=== PATIENT | female | born 2000 | race African-American/Black ===

== ENCOUNTER 2021-03-28 14:45 | Emergency (ER) | payer MEDICAID, SELFPAY ==
[2021-03-28] MEDS ORDERED: Acetaminophen 500 MG TAB ONE (15:30)
[2021-03-28 15:32] LABS: Bilirubin Negative (Negative); Blood, Urine 3+ (Negative); Clarity Turbid (Clear); Glucose, Urine (Dipstick) Normal (Negative); Ketone, Urine Trace mg/dL (Negative); Leukocyte 500 Leu/uL (Negative); Nitrite Negative (Negative); Protein, Urine (Dipstick) 70 mg/dL (Neg-Trace); Specific Gravity, Urine 1.039 (1.002-1.036); Urobilinogen 3 mg/dL (Less than 2)
[2021-03-28 15:34] LABS: Pregnancy Test - Urine (BHCG) Negative (Negative); Pregu Control Background? CLEAR/WHITE (CLR/WHITE); Pregu Control Bar Appear? YES (CONTROL BAR); Specific Gravity 1.039 (1.002-1.036)
[2021-03-28 15:45] LABS: WBC/HPF 21-50 HPF (0-3)
[2021-03-28 15:46] LABS: Bacteria/HPF 1+ HPF (None Seen)
[2021-03-28] MEDS ORDERED: Ketorolac Tromethamine 30 MG/ML VIAL ONE (16:11)
[2021-03-28 17:00] LABS: #Basophils 0.1 thou/uL (0.0-0.2); #Eosinphils 0.2 thou/uL (0.0-0.7); #Lymphocytes 2.2 thou/uL (1.20-3.40); #Monocytes 0.6 thou/uL (0.11-0.59); #Neutrophils 5.9 thou/uL (1.40-6.50); %Basophils 0.7 % (0.0-1.0); %Eosinophils 2.4 % (0.0-10.0); %Lymphocytes 24.5 % (28.0-48.0); %Monocytes 6.6 % (0.0-4.0); %Neutrophils 65.8 % (31.0-61.0); Hemoglobin 13.4 g/dL (12.0-16.0); Mean Corpuscular HGB CONC 32.1 g/dL (32.0-36.0); Mean Corpuscular Hemoglobin 29.4 pg (25.0-35.0); Mean Corpuscular Volume 91.6 fL (78.0-98.0); Mean Platelet Volume 9.8 fL (7.4-10.4); Platelet Count 184 thou/uL (130-400); RBC Distribution Width 11.9 % (11.5-14.5); Red Blood Cell (RBC) Count 4.55 mill/uL (4.00-5.20); White Blood Cell (WBC) Count 8.9 thou/uL (4.8-10.8)
[2021-03-28 17:24] LABS: ALT (SGPT) 14 U/L (8-55); AST (SGOT) 23 U/L (5-34); Albumin 4.6 g/dL (3.5-5.0); Alkaline Phosphatase 98 U/L (40-100); Anion Gap 16 mmol/L (10-20); BUN (Urea Nitrogen) 5 mg/dL (7.0-18.7); Bilirubin, Total 0.5 mg/dL (0.2-1.2); Calc. Creatinine Clearance 0 mL/min (70-130); Calcium 9.6 mg/dL (7.8-10.44); Carbon Dioxide 20 mmol/L (22-29); Chloride 109 mmol/L (98-107); Globulin 3.7 g/dL (2.4-3.5); Glucose 68 mg/dL (70-105); Lipase 11 U/L (8-78); Potassium 3.9 mmol/L (3.5-5.1); Protein, Total 8.3 g/dL (6.0-8.3); Sodium 141 mmol/L (136-145)
[2021-03-28] MEDS ORDERED: Ondansetron ODT 4 MG TAB ONE (17:45)
== END 2021-03-28 17:57 | disposition home or self-care (01) ==
LOC: ERS 14:45
DX: M54.50 Low back pain, unspecified (principal)
CPT/HCPCS: 74176; 80053; 81003; 81015; 81025; 83690; 85025; 96374; J1885; Q0162

== ENCOUNTER 2022-04-09 08:51 | Emergency (ER) | payer SELFPAY ==
[2022-04-09 09:25] LABS: #Basophils 0.1 thou/uL (0.0-0.2); #Eosinphils 0.1 thou/uL (0.0-0.7); #Lymphocytes 2.7 thou/uL (1.20-3.40); #Monocytes 0.6 thou/uL (0.11-0.59); %Basophils 0.7 % (0.0-1.0); %Eosinophils 1.4 % (0.0-10.0); %Lymphocytes 31.8 % (21.0-51.0); %Monocytes 7.5 % (0.0-10.0); %Neutrophils 58.7 % (42.0-75.0); Hemoglobin 12.8 g/dL (12.0-16.0); Mean Corpuscular HGB CONC 31.5 g/dL (32.0-36.0); Mean Corpuscular Hemoglobin 29.4 pg (27.0-31.0); Mean Corpuscular Volume 93.3 fl (78.0-98.0); Mean Platelet Volume 9.2 fL (7.4-10.4); Platelet Count 186 10x3/uL (130-400); RBC Distribution Width 11.7 % (11.5-14.5); Red Blood Cell (RBC) Count 4.35 mill/uL (4.20-5.40); White Blood Cell (WBC) Count 8.5 10x3/uL (4.8-10.8)
[2022-04-09 09:50] LABS: BHCG - Serum Negative (NEGATIVE); Pregs Control Background? CLEAR/WHITE (CLR/WHITE); Pregs Control Bar Appear? YES (CONTROL BAR)
[2022-04-09 10:08] LABS: ALT (SGPT) 13 U/L (8-55); AST (SGOT) 17 U/L (5-34); Albumin 4.6 g/dL (3.5-5.0); Alkaline Phosphatase 98 U/L (40-110); Anion Gap 14 mmol/L (10-20); BUN (Urea Nitrogen) 6 mg/dL (7.0-18.7); Bilirubin, Total 0.5 mg/dL (0.2-1.2); CK (CPK) 214 U/L (29-168); Calc. Creatinine Clearance 0 mL/min (70-130); Calcium 9.4 mg/dL (7.8-10.44); Carbon Dioxide 22 mmol/L (22-29); Chloride 109 mmol/L (98-107); Estimated GFR 127; Glucose 86 mg/dL (70-105); Lipase 11 U/L (8-78); Potassium 3.7 mmol/L (3.5-5.1); Protein, Total 7.6 g/dL (6.0-8.3); Sodium 141 mmol/L (136-145)
[2022-04-09] MEDS ORDERED: Ketorolac Tromethamine 30 MG/ML VIAL ONE (10:34)
[2022-04-09] MEDS ORDERED: Metoclopramide HCl 10 MG/2 ML VIAL ONE (10:34)
[2022-04-09] MEDS ORDERED: diphenhydrAMINE 50 MG/ML VIAL ONE (10:34)
[2022-04-09 11:10] LABS: Bilirubin Negative (Negative); Blood, Urine 2+ (Negative); Clarity Turbid (Clear); Glucose, Urine (Dipstick) Normal (Negative); Ketone, Urine Negative (Negative); Leukocyte 500 Leu/uL (Negative); Nitrite Negative (Negative); Protein, Urine (Dipstick) 10 mg/dL (Neg-Trace); Specific Gravity, Urine 1.014 (1.002-1.036); Urobilinogen Normal mg/dL (Less than 2)
[2022-04-09 11:21] LABS: Bacteria/HPF 2+ HPF (None Seen)
[2022-04-09] MEDS ORDERED: Midazolam HCl 2 mg/2 ml Vial ONE (11:23)
== END 2022-04-09 12:21 | disposition home or self-care (01) ==
LOC: ERS 08:51
DX: N39.0 Urinary tract infection, site not specified (principal); J02.9 Acute pharyngitis, unspecified; R07.9 Chest pain, unspecified
CPT/HCPCS: 36415; 71045; 80053; 81003; 81015; 82550; 83690; 83880; 84484; 84703; 85025; 85379; 87077; 87086; 87186; 93005; 96365; 96375; J1200; J1885; J2250; J2765

== ENCOUNTER 2022-04-12 19:29 | Emergency (ER) | payer SELFPAY ==
[~2022-04-12 19:29] MED LIST: Iopamidol-370 76% 500 ML 1 ML ONE
[2022-04-12] MEDS ORDERED: Ondansetron PF 4 MG/2 ML Vial ONE (20:11)
[2022-04-12] MEDS ORDERED: Ketorolac Tromethamine 30 MG/ML VIAL ONE (20:11)
[2022-04-12] MEDS ORDERED: Morphine 4 MG/ML VIAL ONE (20:11)
[2022-04-12 20:27] LABS: #Basophils 0.1 thou/uL (0.0-0.2); #Eosinphils 0.1 thou/uL (0.0-0.7); #Lymphocytes 2.1 thou/uL (1.20-3.40); #Monocytes 0.5 thou/uL (0.11-0.59); #Neutrophils 6.4 thou/uL (1.40-6.50); %Basophils 0.6 % (0.0-1.0); %Eosinophils 1.2 % (0.0-10.0); %Monocytes 5.8 % (0.0-10.0); %Neutrophils 69.5 % (42.0-75.0); Hemoglobin 12.7 g/dL (12.0-16.0); Mean Corpuscular HGB CONC 32.7 g/dL (32.0-36.0); Mean Corpuscular Hemoglobin 30.1 pg (27.0-31.0); Mean Corpuscular Volume 91.9 fl (78.0-98.0); Mean Platelet Volume 9.7 fL (7.4-10.4); Platelet Count 186 10x3/uL (130-400); RBC Distribution Width 11.6 % (11.5-14.5); Red Blood Cell (RBC) Count 4.21 mill/uL (4.20-5.40); White Blood Cell (WBC) Count 9.3 10x3/uL (4.8-10.8)
[2022-04-12 20:38] LABS: BHCG - Serum Negative (NEGATIVE); Pregs Control Background? CLEAR/WHITE (CLR/WHITE); Pregs Control Bar Appear? YES (CONTROL BAR)
[2022-04-12] MEDS ORDERED: cefTRIAXone\\ROCEPHIN 2 GM VIAL ONE (20:44)
[2022-04-12 20:49] LABS: ALT (SGPT) 13 U/L (8-55); AST (SGOT) 17 U/L (5-34); Albumin 4.5 g/dL (3.5-5.0); Alkaline Phosphatase 102 U/L (40-110); Anion Gap 13 mmol/L (10-20); BUN (Urea Nitrogen) 8 mg/dL (7.0-18.7); Bilirubin, Total 0.4 mg/dL (0.2-1.2); Calc. Creatinine Clearance 0 mL/min (70-130); Calcium 9.4 mg/dL (7.8-10.44); Carbon Dioxide 22 mmol/L (22-29); Chloride 108 mmol/L (98-107); Estimated GFR 120; Globulin 3.3 g/dL (2.4-3.5); Glucose 87 mg/dL (70-105); Potassium 4.3 mmol/L (3.5-5.1); Protein, Total 7.8 g/dL (6.0-8.3); Sodium 139 mmol/L (136-145)
== END 2022-04-12 22:19 | disposition home or self-care (01) ==
LOC: ERS 19:29
DX: N10 Acute pyelonephritis (principal); I10 Essential (primary) hypertension
CPT/HCPCS: 74177; 80053; 84703; 85025; 96361; 96365; 96375; J0696; J1885; J2270; J2405; Q9967

== ENCOUNTER 2022-09-19 10:51 | Emergency (ER) | payer SELFPAY ==
[2022-09-19] MEDS ORDERED: Acetaminophen 325 MG TAB ONE (11:50)
[2022-09-19 11:56] LABS: #Eosinphils 0.1 thou/uL (0.0-0.7); #Monocytes 0.6 thou/uL (0.11-0.59); #Neutrophils 7.9 thou/uL (1.40-6.50); %Basophils 0.4 % (0.0-1.0); %Eosinophils 1.1 % (0.0-10.0); %Lymphocytes 17.1 % (21.0-51.0); %Monocytes 5.8 % (0.0-10.0); %Neutrophils 75.4 % (42.0-75.0); Mean Corpuscular HGB CONC 31.7 g/dL (32.0-36.0); Mean Corpuscular Hemoglobin 28.2 pg (27.0-31.0); Mean Corpuscular Volume 88.9 fl (78.0-98.0); Mean Platelet Volume 11.1 fL (7.4-10.4); Platelet Count 185 10x3/uL (130-400); RBC Distribution Width 12.4 % (11.5-14.5); Red Blood Cell (RBC) Count 4.25 mill/uL (4.20-5.40); White Blood Cell (WBC) Count 10.4 10x3/uL (4.8-10.8)
[2022-09-19 12:00] LABS: BHCG - Serum Negative (NEGATIVE); Pregs Control Background? CLEAR/WHITE (CLR/WHITE); Pregs Control Bar Appear? YES (CONTROL BAR)
[2022-09-19 12:12] LABS: ALT (SGPT) 13 U/L (8-55); AST (SGOT) 14 U/L (5-34); Albumin 4.2 g/dL (3.5-5.0); Alkaline Phosphatase 87 U/L (40-110); Anion Gap 12 mmol/L (10-20); BUN (Urea Nitrogen) 5 mg/dL (7.0-18.7); Bilirubin, Total 0.3 mg/dL (0.2-1.2); Calc. Creatinine Clearance 0 mL/min (70-130); Calcium 9.2 mg/dL (7.8-10.44); Carbon Dioxide 21 mmol/L (22-29); Chloride 111 mmol/L (98-107); Estimated GFR 124; Globulin 3.1 g/dL (2.4-3.5); Glucose 82 mg/dL (70-105); Potassium 3.8 mmol/L (3.5-5.1); Protein, Total 7.3 g/dL (6.0-8.3); Sodium 140 mmol/L (136-145)
[2022-09-19 13:35] LABS: Bacteria/HPF 4+ HPF (None Seen); Bilirubin Negative (Negative); Blood, Urine 3+ (Negative); Clarity Turbid (Clear); Glucose, Urine (Dipstick) Normal (Negative); Ketone, Urine Negative (Negative); Leukocyte 500 Leu/uL (Negative); Nitrite Negative (Negative); Protein, Urine (Dipstick) 10 mg/dL (Neg-Trace); RBC/HPF Greater than 50 HPF (0-3); Specific Gravity, Urine 1.011 (1.002-1.036); Urobilinogen Normal mg/dL (Less than 2); WBC/HPF Greater than 50 HPF (0-3); pH, Urine 7.5 (5.0-9.0)
[2022-09-19] MEDS ORDERED: Ketorolac Tromethamine 30 MG/ML VIAL ONE (13:49)
[2022-09-19] MEDS ORDERED: Lidocaine 1% MPF 2 ML VIAL ONE ×2 (14:26→14:27)
[2022-09-19] MEDS ORDERED: cefTRIAXone (ROCEPHIN) 1 GM VIAL ONE (14:26)
== END 2022-09-19 14:51 | disposition home or self-care (01) ==
LOC: ERS 10:51
DX: N30.00 Acute cystitis without hematuria (principal)
CPT/HCPCS: 36415; 80053; 81003; 81015; 84703; 85025; 87077; 87086; 96372; 99284; J0696; J1885

== ENCOUNTER 2023-07-09 08:28 | Emergency (ER) | payer SELFPAY ==
[2023-07-09] MEDS ORDERED: Acetaminophen 500 MG TAB ONE (09:17)
[2023-07-09] MEDS ORDERED: Ketorolac Tromethamine 30 MG (1 mL) VIAL ONE (09:18)
[2023-07-09] MEDS ORDERED: diphenhydrAMINE 50 MG/ML VIAL ONE (09:18)
[2023-07-09] MEDS ORDERED: Metoclopramide HCl 10 MG (2 mL) VIAL ONE (09:18)
[2023-07-09 10:44] LABS: Bilirubin Negative (Negative); Blood, Urine Trace (Negative); Glucose, Urine (Dipstick) Negative (Negative); Ketone, Urine > or equal to 80 mg/dL (Negative); Leukocyte Negative (Negative); Nitrite Negative (Negative); Protein, Urine (Dipstick) Negative (Neg-Trace); pH, Urine 6.5 (5.0-9.0)
[2023-07-09 10:58] LABS: Clarity Clear (Clear)
[2023-07-09 11:00] LABS: Pregnancy Test - Urine (BHCG) Negative (Negative); Pregu Control Background? CLEAR/WHITE (CLR/WHITE); Pregu Control Bar Appear? YES (CONTROL BAR)
[2023-07-09 11:07] LABS: Bacteria/HPF None Seen HPF (None Seen); CAUTI Indications for Culture Pregnancy; RBC/HPF 0-3 HPF (0-3); Squamous Epithelial 0-3 HPF (0-3); WBC/HPF 0-3 HPF (0-3); Yeast-Budding None Seen HPF (None Seen)
[2023-07-09 11:08] LABS: Trichomonas/HPF None Seen HPF (None Seen); Urine Culture Reflex Yes Yes
== END 2023-07-09 10:58 | disposition home or self-care (01) ==
LOC: ERS 08:28
DX: R51.9 Headache, unspecified (principal)
CPT/HCPCS: 81001; 81025; 87086; 96361; 96365; 96375; J1200; J1885; J2765

== ENCOUNTER 2023-11-07 07:21 | Emergency (ER) | payer SELFPAY ==
[2023-11-07] MEDS ORDERED: Ketorolac Tromethamine 30 MG (1 mL) VIAL ONE (08:50)
== END 2023-11-07 09:34 | disposition home or self-care (01) ==
LOC: ERS 07:21
DX: M54.6 Pain in thoracic spine (principal); M54.50 Low back pain, unspecified; F17.290 Nicotine dependence, other tobacco product, uncomplicated; X50.0XXA Overexertion from strenuous movement or load, initial encounter; Y93.72 Activity, wrestling
CPT/HCPCS: 96372; 99283; J1885

== ENCOUNTER 2024-03-30 19:28 | Emergency (ER) | payer SELFPAY ==
[2024-03-30] MEDS ORDERED: Acetaminophen 500 MG TAB ONE (20:08)
[2024-03-30] MEDS ORDERED: Ketorolac Tromethamine 30 MG (1 mL) VIAL ONE (20:08)
== END 2024-03-30 20:43 | disposition home or self-care (01) ==
LOC: ERS 19:28
DX: J10.1 Influenza due to other identified influenza virus with other respiratory manifestations (principal)
CPT/HCPCS: 71046; 87081; 87428; 87430; 93005; 96372; J1885

== ENCOUNTER 2024-05-31 23:04 | Emergency (ER) | payer SELFPAY ==
[2024-05-31] MEDS ORDERED: diphenhydrAMINE 50 MG/ML VIAL ONE (23:56)
[2024-05-31] MEDS ORDERED: Metoclopramide HCl 10 MG (2 mL) VIAL ONE (23:56)
[2024-05-31] MEDS ORDERED: Ketorolac Tromethamine 30 MG (1 mL) VIAL ONE (23:56)
== END 2024-06-01 00:31 | disposition left against medical advice (07) ==
LOC: ERS 23:04
DX: M54.2 Cervicalgia (principal); Z55.6 Problems related to health literacy
CPT/HCPCS: 96374; 96375; J1200; J1885; J2765

== ENCOUNTER 2025-02-26 19:39 | Emergency (ER) | payer SELFPAY ==
[2025-02-26] MEDS ORDERED: Ibuprofen 800 MG TAB ONE (21:01)
== END 2025-02-26 23:30 | disposition home or self-care (01) ==
LOC: ERS 19:39
DX: M54.2 Cervicalgia (principal); I10 Essential (primary) hypertension; X50.0XXA Overexertion from strenuous movement or load, initial encounter
CPT/HCPCS: 72040; 99283